=== PATIENT | male | born 1995 | race Caucasian/White ===

== ENCOUNTER 2020-05-29 09:04 | Inpatient (IN) | payer OTHER ==
[~2020-05-29] VITALS: Ht 193 cm; Wt 129.6 kg
[2020-05-29] MEDS ORDERED: SODIUM CHLORIDE 0.9% 1,000 ML IV ONE (09:08)
[2020-05-29] MEDS ORDERED: PLEASE ENTER HEIGHT AND WEIGHT MC SCH (09:12)
[2020-05-29 09:30] LABS: BASOPHILS # (AUTO) 0.03 x10^3/uL (0-0.1); BASOPHILS % (AUTO) 0 % (0-1); EOSINOPHILS # (AUTO) 0.22 x10^3/uL (0-0.4); EOSINOPHILS % (AUTO) 3 % (1-7); LYMPHOCYTES # (AUTO) 0.98 x10^3/uL (1-3.4); LYMPHOCYTES % (AUTO) 13 % (22-44); MD NO; MEAN CORPUSCULAR HEMOGLOBIN 29.8 pg (27.5-34.5); MEAN CORPUSCULAR HGB CONC 32.7 g/dL (33.2-36.2); MEAN PLATELET VOLUME 9.6 fL (7.4-10.4); MONOCYTES # (AUTO) 0.41 x10^3/uL (0.2-0.8); MONOCYTES % (AUTO) 5 % (2-9); NEUTROPHILS # (AUTO) 6.03 x10^3/uL (1.8-6.8); NEUTROPHILS % (AUTO) 79 % (42-75); PLATELET COUNT 220 x10^3/uL (130-400); RED BLOOD COUNT 4.95 x10^6/uL (4.38-5.82); RED CELL DISTRIBUTION WIDTH 13.6 % (9.4-14.8)
[2020-05-29] MEDS ORDERED: SODIUM CHLORIDE 0.9% 1,000ML IVBOLUS ONE (09:30)
[2020-05-29] MEDS ORDERED: SODIUM CHLORIDE FLUSH 10ML SYR IVF ONE (09:30)
--- NOTE | 2020-05-29 09:51 | NUR ---
VS ARE IMPROVING AFTER IV FLUID RESUSITATION. HEART RATE NOW IN THE 115 RANGE. BP NOW 126/47. TACHYPNEA IMPROVING.
[2020-05-29 09:55] LABS: ALBUMIN 4.4 g/dL (3.4-5.0); CALCIUM 9.7 mg/dL (8.5-10.1)
[2020-05-29 10:00] LABS: ALANINE AMINOTRANSFERASE 74 U/L (12-78); ALKALINE PHOSPHATASE 111 U/L (45-117); BILIRUBIN,TOTAL 0.4 mg/dL (0.2-1.0); CREATININE 2.28 mg/dL (0.7-1.3); TOTAL PROTEIN 8.2 g/dL (6.4-8.2)
[2020-05-29 10:10] LABS: ANION GAP 15 mmol/L (5-15); CHLORIDE 111 mmol/L (98-107)
[2020-05-29 10:11] LABS: TROPONIN I 0.503 ng/mL (0.000-0.045)
[2020-05-29 10:12] LABS: CREATINE KINASE, TOTAL 5853 U/L (39-308)
--- NOTE | 2020-05-29 11:24 | NUR ---
TASK RN: PT RESTING ON [place], TALKING ON CELL PHONE, RIDGE. CALL LIGHT WITHIN REACH.
[2020-05-29] MEDS ORDERED: SODIUM CHLORIDE FLUSH 10ML SYR IVF PRN (12:00)
[2020-05-29] MEDS ORDERED: SODIUM CHLORIDE 0.9% 500 ML IV SCH (13:30)
[2020-05-29] MEDS: SODIUM CHLORIDE 0.9% 500 ML IV SCH ×4 (13:39→22:50)
[2020-05-29] MEDS ORDERED: MELATONIN 5 MG TABLET PO PRN (14:30)
[2020-05-29] MEDS ORDERED: ONDANSETRON ODT 4 MG PO PRN (14:30)
[2020-05-29] MEDS ORDERED: ACETAMINOPHEN 325 MG TABLET PO PRN (14:30)
[2020-05-29] MEDS ORDERED: BISACODYL 10 MG SUPP PR PRN (14:30)
[2020-05-29] MEDS ORDERED: morphine SULFATE 10 MG/ML, 1ML IVPush PRN (14:30)
[2020-05-29] MEDS ORDERED: POLYETHYLENE GLYCOL 17 GM PACKET PO PRN (14:30)
[2020-05-29] MEDS ORDERED: ONDANSETRON 2MG/ML, 2ML IVPush PRN (14:30)
[2020-05-29] MEDS ORDERED: LORazepam 0.5MG TABLET PO PRN (14:30)
[2020-05-29 14:35] LABS: ANION GAP 11 mmol/L (5-15); CALCIUM 8.4 mg/dL (8.5-10.1); CHLORIDE 113 mmol/L (98-107); CREATININE 1.44 mg/dL (0.7-1.3)
[2020-05-29 15:00] LABS: CREATINE KINASE, TOTAL 8741 U/L (39-308)
[2020-05-29 15:45] LABS: INTERNATIONAL NORMALIZED RATIO 1.02 (0.93-1.1); PROTHROMBIN TIME 10.8 Seconds (9.6-11.5)
--- NOTE | 2020-05-29 15:59 | NUR ---
[facility] TELEPHONE HAND-OFF REPORT GIVEN TO RADHA FREEMAN. PT READY TO GO TO TO ROOM 513.
[2020-05-29] MEDS: SODIUM BICARBONATE 8.4% 150 MEQ in DEXTROSE 5% 1,000 ML IV SCH (17:11)
[2020-05-29] MEDS: HEPARIN 5,000 UNITS/ML, 1ML SQ SCH (17:11)
[2020-05-29 17:17] VITALS: BP 113/56
[2020-05-29] MEDS ORDERED: POTASSIUM PHOSPHATE 44 MEQ in SODIUM CHLORIDE 0.9% 500 ML IV ONE (18:00)
[2020-05-29 19:26] LABS: ANION GAP 9 mmol/L (5-15); CALCIUM 7.8 mg/dL (8.5-10.1); CHLORIDE 113 mmol/L (98-107); CREATININE 1.39 mg/dL (0.7-1.3)
[2020-05-29 19:51] LABS: CREATINE KINASE, TOTAL 11938 U/L (39-308)
[2020-05-29 20:22] VITALS: BP 130/74
[2020-05-29] MEDS: OXYcodone IR 5MG TABLET PO PRN (20:25)
[2020-05-29 20:34] LABS: CHLORIDE,URINE RANDOM 66 mmol/L; POTASSIUM,URINE RANDOM 7 mmol/L; SODIUM,URINE RANDOM 69 mmol/L
[2020-05-29 20:42] LABS: MICROSCOPIC AUTO
[2020-05-30] MEDS: HEPARIN 5,000 UNITS/ML, 1ML SQ SCH (01:26)
[2020-05-30] MEDS: OXYcodone IR 5MG TABLET PO PRN ×2 (01:30→21:17)
[2020-05-30 01:54] LABS: ANION GAP 8 mmol/L (5-15); CALCIUM 7.8 mg/dL (8.5-10.1); CHLORIDE 112 mmol/L (98-107); CREATININE 1.17 mg/dL (0.7-1.3)
[2020-05-30 02:08] VITALS: BP 141/76
[2020-05-30 02:20] LABS: CREATINE KINASE, TOTAL 13087 U/L (39-308)
[2020-05-30] MEDS: SODIUM CHLORIDE 0.9% 1,000 ML IV SCH ×4 (03:52→22:43)
[2020-05-30 05:48] LABS: BASOPHILS # (AUTO) 0.03 x10^3/uL (0-0.1); BASOPHILS % (AUTO) 1 % (0-1); EOSINOPHILS # (AUTO) 0.15 x10^3/uL (0-0.4); EOSINOPHILS % (AUTO) 2 % (1-7); LYMPHOCYTES # (AUTO) 1.39 x10^3/uL (1-3.4); LYMPHOCYTES % (AUTO) 21 % (22-44); MD NO; MEAN CORPUSCULAR HEMOGLOBIN 29.8 pg (27.5-34.5); MEAN CORPUSCULAR HGB CONC 32.8 g/dL (33.2-36.2); MEAN CORPUSCULAR VOLUME 90.8 fL (81-97); MEAN PLATELET VOLUME 10.1 fL (7.4-10.4); MONOCYTES # (AUTO) 0.62 x10^3/uL (0.2-0.8); MONOCYTES % (AUTO) 9 % (2-9); NEUTROPHILS # (AUTO) 4.54 x10^3/uL (1.8-6.8); NEUTROPHILS % (AUTO) 68 % (42-75); PLATELET COUNT 137 x10^3/uL (130-400); RED BLOOD COUNT 4.35 x10^6/uL (4.38-5.82); RED CELL DISTRIBUTION WIDTH 13.8 % (9.4-14.8)
[2020-05-30 05:50] LABS: ALANINE AMINOTRANSFERASE 171 U/L (12-78); ALBUMIN 3.5 g/dL (3.4-5.0); ANION GAP 6 mmol/L (5-15); CHLORIDE 115 mmol/L (98-107); CREATININE 1.04 mg/dL (0.7-1.3)
[2020-05-30 05:54] LABS: ALKALINE PHOSPHATASE 93 U/L (45-117); BILIRUBIN,TOTAL 0.3 mg/dL (0.2-1.0); CHOL/HDL RATIO 2.4; CHOLESTEROL, TOTAL 81 mg/dL (140-239); HDL CHOL % 42 % (26-37); HDL CHOLESTEROL (DIRECT) 34 mg/dL (40-60); LDL CHOLESTEROL,CALCULATED 33 mg/dL (54-169); TOTAL PROTEIN 6.5 g/dL (6.4-8.2); TRIGLYCERIDES 69 mg/dL (50-200); VLDL CHOLESTEROL 14 mg/dL (0-25)
[2020-05-30] MEDS: PANTOPRAZOLE 40MG TABLET PO SCH (06:04)
[2020-05-30] MEDS ORDERED: PANTOPRAZOLE 40 MG IV IVPush SCH (07:30)
[2020-05-30 07:37] LABS: ANION GAP 7 mmol/L (5-15); CALCIUM 7.8 mg/dL (8.5-10.1); CHLORIDE 115 mmol/L (98-107); CREATININE 0.97 mg/dL (0.7-1.3)
[2020-05-30 07:39] VITALS: BP 137/70
[2020-05-30 08:03] LABS: CREATINE KINASE, TOTAL 12546 U/L (39-308)
[2020-05-30] MEDS: ENOXAPARIN 40 MG/0.4 ML SQ SCH (08:37)
[2020-05-30] MEDS: SENNA/DOCUSATE TABLET PO SCH (08:39)
[2020-05-30] MEDS: SODIUM BICARBONATE 8.4% 150 MEQ in DEXTROSE 5% 1,000 ML IV SCH (12:15)
[2020-05-30 12:47] VITALS: BP 118/78
[2020-05-30 13:32] LABS: ANION GAP 7 mmol/L (5-15); CALCIUM 8.1 mg/dL (8.5-10.1); CHLORIDE 114 mmol/L (98-107); CREATININE 0.94 mg/dL (0.7-1.3)
[2020-05-30 14:00] LABS: CREATINE KINASE, TOTAL 13291 U/L (39-308)
[2020-05-30] MEDS ORDERED: POTASSIUM CHLORIDE 20 MEQ TAB.ER.PRT PO ONE (16:30)
[2020-05-30 19:37] LABS: ANION GAP 3 mmol/L (5-15); CALCIUM 8.4 mg/dL (8.5-10.1); CHLORIDE 113 mmol/L (98-107); CREATININE 1.13 mg/dL (0.7-1.3)
[2020-05-30 21:18] LABS: CREATINE KINASE, TOTAL 15840 U/L (39-308)
[2020-05-30 21:28] VITALS: BP 143/84
[2020-05-31 03:55] VITALS: BP 135/86
[2020-05-31] MEDS: SODIUM CHLORIDE 0.9% 1,000 ML IV SCH (03:55)
[2020-05-31] MEDS: OXYcodone IR 5MG TABLET PO PRN ×2 (04:04→22:37)
[2020-05-31] MEDS: PANTOPRAZOLE 40MG TABLET PO SCH (05:45)
[2020-05-31 06:25] VITALS: BP 143/79
[2020-05-31 06:39] LABS: BASOPHILS # (AUTO) 0.03 x10^3/uL (0-0.1); BASOPHILS % (AUTO) 0 % (0-1); EOSINOPHILS # (AUTO) 0.23 x10^3/uL (0-0.4); EOSINOPHILS % (AUTO) 4 % (1-7); LYMPHOCYTES # (AUTO) 0.91 x10^3/uL (1-3.4); LYMPHOCYTES % (AUTO) 15 % (22-44); MD NO; MEAN CORPUSCULAR HEMOGLOBIN 29.9 pg (27.5-34.5); MEAN CORPUSCULAR HGB CONC 32.8 g/dL (33.2-36.2); MEAN CORPUSCULAR VOLUME 91.2 fL (81-97); MEAN PLATELET VOLUME 10.6 fL (7.4-10.4); MONOCYTES # (AUTO) 0.47 x10^3/uL (0.2-0.8); MONOCYTES % (AUTO) 8 % (2-9); NEUTROPHILS # (AUTO) 4.65 x10^3/uL (1.8-6.8); NEUTROPHILS % (AUTO) 74 % (42-75); PLATELET COUNT 129 x10^3/uL (130-400); RED BLOOD COUNT 4.08 x10^6/uL (4.38-5.82); RED CELL DISTRIBUTION WIDTH 13.6 % (9.4-14.8)
[2020-05-31 06:48] LABS: CHLORIDE 113 mmol/L (98-107)
[2020-05-31 07:17] LABS: ALANINE AMINOTRANSFERASE 434 U/L (12-78); ALBUMIN 3.6 g/dL (3.4-5.0); ALKALINE PHOSPHATASE 85 U/L (45-117); ANION GAP 4 mmol/L (5-15); BILIRUBIN,TOTAL 0.5 mg/dL (0.2-1.0); CALCIUM 8.7 mg/dL (8.5-10.1); CREATINE KINASE, TOTAL 10624 U/L (39-308); TOTAL PROTEIN 6.5 g/dL (6.4-8.2)
[2020-05-31] MEDS: ENOXAPARIN 40 MG/0.4 ML SQ SCH (09:00)
[2020-05-31] MEDS: SENNA/DOCUSATE TABLET PO SCH (09:00)
[2020-05-31] MEDS: LACTATED RINGERS 1,000 ML IV SCH ×3 (09:00→22:37)
[2020-05-31 12:06] VITALS: BP 143/81
[2020-05-31 18:47] VITALS: BP 147/74
[2020-06-01 01:23] VITALS: BP 141/66
[2020-06-01] MEDS: PANTOPRAZOLE 40MG TABLET PO SCH (05:57)
[2020-06-01 06:14] LABS: BASOPHILS # (AUTO) 0.03 x10^3/uL (0-0.1); BASOPHILS % (AUTO) 0 % (0-1); EOSINOPHILS # (AUTO) 0.32 x10^3/uL (0-0.4); EOSINOPHILS % (AUTO) 5 % (1-7); LYMPHOCYTES # (AUTO) 1.08 x10^3/uL (1-3.4); LYMPHOCYTES % (AUTO) 17 % (22-44); MD NO; MEAN CORPUSCULAR HGB CONC 33.2 g/dL (33.2-36.2); MEAN CORPUSCULAR VOLUME 90.5 fL (81-97); MEAN PLATELET VOLUME 10.4 fL (7.4-10.4); MONOCYTES # (AUTO) 0.49 x10^3/uL (0.2-0.8); MONOCYTES % (AUTO) 8 % (2-9); NEUTROPHILS # (AUTO) 4.49 x10^3/uL (1.8-6.8); NEUTROPHILS % (AUTO) 70 % (42-75); PLATELET COUNT 156 x10^3/uL (130-400); RED BLOOD COUNT 4.33 x10^6/uL (4.38-5.82); RED CELL DISTRIBUTION WIDTH 13.3 % (9.4-14.8)
[2020-06-01 06:24] LABS: ALANINE AMINOTRANSFERASE 365 U/L (12-78); ALBUMIN 3.3 g/dL (3.4-5.0); ANION GAP 5 mmol/L (5-15); CALCIUM 8.7 mg/dL (8.5-10.1); CHLORIDE 110 mmol/L (98-107)
[2020-06-01 06:29] LABS: ALKALINE PHOSPHATASE 80 U/L (45-117); BILIRUBIN,TOTAL 0.6 mg/dL (0.2-1.0); CREATININE 0.89 mg/dL (0.7-1.3); TOTAL PROTEIN 6.4 g/dL (6.4-8.2)
[2020-06-01 06:55] LABS: CREATINE KINASE, TOTAL 7196 U/L (39-308)
[2020-06-01 08:04] VITALS: BP 131/63
[2020-06-01] MEDS: LACTATED RINGERS 1,000 ML IV SCH ×3 (08:10→21:51)
[2020-06-01] MEDS: SENNA/DOCUSATE TABLET PO SCH (08:10)
[2020-06-01] MEDS: ENOXAPARIN 40 MG/0.4 ML SQ SCH (08:10)
[2020-06-01 13:50] VITALS: BP 142/83
[2020-06-01 18:27] VITALS: BP 136/71
[2020-06-02 01:42] VITALS: BP 125/71
[2020-06-02] MEDS: PANTOPRAZOLE 40MG TABLET PO SCH (05:54)
[2020-06-02 06:31] LABS: ALANINE AMINOTRANSFERASE 353 U/L (12-78); ALBUMIN 3.5 g/dL (3.4-5.0); ANION GAP 4 mmol/L (5-15); CALCIUM 9.3 mg/dL (8.5-10.1); CHLORIDE 108 mmol/L (98-107); CREATININE 0.93 mg/dL (0.7-1.3)
[2020-06-02] MEDS: LACTATED RINGERS 1,000 ML IV SCH (06:31)
[2020-06-02 06:35] LABS: ALKALINE PHOSPHATASE 85 U/L (45-117); BILIRUBIN,TOTAL 0.5 mg/dL (0.2-1.0); TOTAL PROTEIN 6.8 g/dL (6.4-8.2); TROPONIN I 0.467 ng/mL (0.000-0.045)
[2020-06-02 06:45] LABS: CREATINE KINASE, TOTAL 4977 U/L (39-308)
[2020-06-02 08:08] VITALS: BP 127/71
[2020-06-02] MEDS: ENOXAPARIN 40 MG/0.4 ML SQ SCH (08:22)
[2020-06-02] MEDS: SENNA/DOCUSATE TABLET PO SCH (08:22)
== END 2020-06-02 12:05 | disposition home or self-care (01) | DRG 564 ==
LOC: ED 12:08 → EDIP 12:09 → UNDOADMIN 12:15 → SUATTDRO 12:18 → 5SO 16:18 → DCLOUNGE 06-02 12:00
PROVIDERS: ADMIT Hospitalist; ATTEND Internal Medicine
DX: T79.6XXA Traumatic ischemia of muscle, initial encounter (principal); G93.5 Compression of brain; T67.09XA Other heatstroke and sunstroke, initial encounter; N17.9 Acute kidney failure, unspecified; E87.2 Acidosis; I24.8 Other forms of acute ischemic heart disease; T67.5XXA Heat exhaustion, unspecified, initial encounter; E83.39 Other disorders of phosphorus metabolism; E86.0 Dehydration; E87.6 Hypokalemia; X30.XXXA Exposure to excessive natural heat, initial encounter; Z82.49 Family history of ischemic heart disease and other diseases of the circulatory system; I95.9 Hypotension, unspecified; W18.39XA Other fall on same level, initial encounter; Y93.89 Activity, other specified; Y92.89 Other specified places as the place of occurrence of the external cause; Y99.8 Other external cause status
CPT/HCPCS: 36415; 70450; 71045; 74176; 76700; 80048; 80053; 80061; 81001; 82436; 82550; 83735; 83874; 84100; 84133; 84300; 84443; 84484; 85025; 85610; 93005; 93306; 93931; 96360; 99285; G0378; J1644; J1650; J7070; J7030; J7040; J7120